=== PATIENT | female | born 1995 | race Caucasian/White ===

== ENCOUNTER 2019-09-07 15:25 | Emergency (ER) | payer SELFPAY ==
[2019-09-07 15:40] VITALS: BP 115/63
--- NOTE | 2019-09-07 16:05 | ER Document Report ---
HPI - HPI Patient complains to provider of: uti Time Seen by Provider: 09/07/19 15:55 Onset: This morning Onset/Duration: Gradual Quality of pain: Burning Pain Level: 2 Context: Patient presents complaining of frequency and dysuria that started today. Patient denies any fever, vomiting or flank pain. Associated Symptoms: Other - Dysuria. denies: Fever, Vomiting Exacerbated by: Denies Relieved by: Denies Similar symptoms previously: No Recently seen / treated by doctor: No - ROS ROS below otherwise negative: Yes Systems Reviewed and Negative: Yes All other systems reviewed and negative - CONSTITUTIONAL Constitutional: DENIES: Fever, Chills - GASTROINTESTINAL Gastrointestinal: DENIES: Abdominal Pain, Nausea - URINARY Urinary: REPORTS: Dysuria, Urgency, Frequency - REPRODUCTIVE Reproductive: DENIES: :, Abnormal bleeding / discharge - MUSCULOSKELETAL Musculoskeletal: DENIES: Back Pain - DERM Skin Color: Normal Skin Problems: None Past Medical History - General Information source: Patient - Social History Smoking Status: Never Smoker Frequency of alcohol use: None Drug Abuse: None Occupation: None Lives with: Spouse/Significant other Family History: Reviewed & Not Pertinent Patient has suicidal ideation: No Patient has homicidal ideation: No - Medical History Medical History: Negative Surgical Hx: Negative Vertical Provider Document - CONSTITUTIONAL Agree With Documented VS: Yes Exam Limitations: No Limitations General Appearance: WD/WN, No Apparent Distress - HEENT HEENT: Atraumatic, Normocephalic - NECK Neck: Normal Inspection - RESPIRATORY Respiratory: No Respiratory Distress - GI/ABDOMEN Gastrointestinal: Abdomen Soft, Abdomen Tender - suprapubic - BACK Back: Normal Inspection. negative: CVA Tenderness-Right, CVA Tenderness-Left - MUSCULOSKELETAL/EXTREMETIES Musculoskeletal/Extremeties: MAEW - NEURO Level of Consciousness: Awake, Alert, Appropriate Motor/Sensory: No Motor Deficit - DERM Integumentary: Warm, Dry, No Rash Course - Re-evaluation Re-evalutation: 09/07/19 16:49 Patient with UTI, patient reports symptoms started today. No concern for obstructive uropathy. No concern for sepsis at this time. Good return precautions discussed. - Vital Signs Vital signs: Temp Pulse Resp BP Pulse Ox 98.8 F 88 18 115/63 99 09/07/19 15:39 09/07/19 15:39 09/07/19 15:39 09/07/19 15:39 09/07/19 15:39 - Laboratory Laboratory results interpreted by me: 09/07/19 16:49 Labs- Entire Visit 09/07/19 15:54 Urine Color YELLOW Urine Appearance SLIGHTLY-CLOUDY Urine pH 8.0 Ur Specific [place] 1.019 Urine Protein NEGATIVE Urine Glucose (UA) NEGATIVE Urine Ketones NEGATIVE Urine Blood SMALL H Urine Nitrite NEGATIVE Urine Bilirubin NEGATIVE Urine Urobilinogen 8.0 H Ur Leukocyte Esterase LARGE H Urine WBC (Auto) >182 Urine RBC (Auto) 28 Urine Bacteria (Auto) TRACE Squamous Epi Cells Auto 1 U Non-Squamous Epis Auto 3 Urine Mucus (Auto) FEW Urine Ascorbic Acid NEGATIVE Discharge - Discharge Clinical Impression: UTI (urinary tract infection) Qualifiers: Urinary tract infection type: site unspecified Hematuria presence: with hematuria Qualified Code(s): N39.0 - Urinary tract infection, site not specified Condition: Stable Disposition: HOME, SELF-CARE Instructions: Cephalexin ([facility]), Urinary Tract Infection ([facility]) Additional Instructions: Return immediately for any new or worsening symptoms Followup with your primary care provider, call tomorrow to make a followup appointment Urine culture is pending, we will call if you need any different treatment Prescriptions: Cephalexin Monohydrate [Keflex 500 mg Capsule] 500 mg PO BID 5 Days capsule Referrals: [facility] [Provider Group] - Follow up as needed
[2019-09-07 16:46] LABS: APPEARANCE,URINE SLIGHTLY-CLOUDY; BILIRUBIN,URINE NEGATIVE (NEGATIVE); COLOR,URINE YELLOW; GLUCOSE, URINE NEGATIVE (NEGATIVE); KETONES,URINE NEGATIVE (NEGATIVE); URINE SPECIFIC GRAVITY 1.019
[2019-09-07 16:47] LABS: LEUKOCYTE ESTERASE,URINE LARGE (NEGATIVE); NITRITE,URINE NEGATIVE (NEGATIVE); PROTEIN,URINE NEGATIVE (NEGATIVE)
[2019-09-07] MEDS ORDERED: CEPHALEXIN 500 MG CAPSULE PO ONE (16:49)
== END 2019-09-07 17:00 | disposition home or self-care (01) ==
LOC: ER 15:25
DX: N39.0 Urinary tract infection, site not specified (principal); R31.9 Hematuria, unspecified
CPT/HCPCS: 81001; 87086; 99283

== ENCOUNTER 2019-10-20 14:09 | Emergency (ER) | payer SELFPAY ==
--- NOTE | 2019-10-20 14:19 | ER Document Report ---
ED Medical Screen (RME) - General Chief Complaint: Dizziness Stated Complaint: SHAKING,LIGHTHEADED Time Seen by Provider: 10/20/19 14:15 Mode of Arrival: Ambulatory Information source: Patient Notes: 23-year-old female presented to ED for complaint of dizziness, lightheaded, anxiety depression, vertigo, and blurred vision. She states the anniversary of her father's is coming up and she is having a panic attack. She states she has numbness in the hand her pulses running between 130 and 140s. Is alert oriented respirations regular nonlabored speaking in full sentences. She states she is extremely lightheaded and feels like she is going to pass out due to the anxiety. She is keeping a heart rate of between 130s and 140s. She states she is on Nexplanon last period was about a year ago. Patient states she does not have any heart problems that she knows of at times her heart rate does go up much higher than this. States she took a piece of a Klonopin before coming. I have greeted and performed a rapid initial assessment of this patient. A comprehensive ED assessment and evaluation of the patient, analysis of test results and completion of medical decision making process will be conducted by an additional ED providers.
[2019-10-20 14:54] LABS: ABSOLUTE EOSINOPHILS # (AUTO) 0.1 10^3/uL (0.0-0.6); ABSOLUTE LYMPHOCYTES (AUTO) 1.9 10^3/uL (0.5-4.7); ABSOLUTE MONOCYTES (AUTO) 0.6 10^3/uL (0.1-1.4); ABSOLUTE NEUT (AUTO) 8.6 10^3/uL (1.7-8.2); BASOPHILS % (AUTO) 0.3 % (0-2); EOSINOPHILS % (AUTO) 0.7 % (0-6); HEMATOCRIT 46.7 % (36.0-47.0); LYMPHOCYTES % (AUTO) 16.6 % (13-45); MEAN CORPUSCULAR HEMOGLOBIN 30.3 pg (27.0-33.4); MEAN CORPUSCULAR HGB CONC 34.3 g/dL (32.0-36.0); MEAN CORPUSCULAR VOLUME 88 fl (80-97); MONOCYTES % (AUTO) 5.7 % (3-13); PLATELET COUNT 287 10^3/uL (150-450); RED BLOOD COUNT 5.29 10^6/uL (3.72-5.28); RED CELL DISTRIBUTION WIDTH 13.1 % (11.5-14.0); SEGMENTED NEUTROPHILS % (AUTO) 76.7 % (42-78); TOTAL CELLS COUNTED % (AUTO) 100 %; WHITE BLOOD COUNT 11.2 10^3/uL (4.0-10.5)
[2019-10-20 15:15] LABS: ALBUMIN 4.7 g/dL (3.5-5.0); ALKALINE PHOSPHATASE 81 U/L (38-126); ANION GAP 12 (5-19); ASPARTATE AMINO TRANSFERASE 21 U/L (14-36); BILIRUBIN,TOTAL 0.6 mg/dL (0.2-1.3); BLOOD UREA NITROGEN 12 mg/dL (7-20); CALCIUM 10.2 mg/dL (8.4-10.2); CARBON DIOXIDE 23 mmol/L (22-30); CHLORIDE 106 mmol/L (98-107); GLUCOSE 107 mg/dL (75-110); POTASSIUM 3.6 mmol/L (3.6-5.0)
[2019-10-20 15:28] LABS: APPEARANCE,URINE SLIGHTLY-CLOUDY; BILIRUBIN,URINE NEGATIVE (NEGATIVE); COLOR,URINE COLORLESS; GLUCOSE, URINE NEGATIVE (NEGATIVE); KETONES,URINE NEGATIVE (NEGATIVE); PROTEIN,URINE NEGATIVE (NEGATIVE); URINE SPECIFIC GRAVITY 1.002; UROBILINOGEN,URINE NEGATIVE mg/dL (<2.0)
--- NOTE | 2019-10-20 15:58 | EKG REPORT ---
SEVERITY:- BORDERLINE ECG - SINUS TACHYCARDIA BORDERLINE T ABNORMALITIES, ANTERIOR LEADS : Confirmed by: Rishabh Florian MD 20-Oct-2019 15:56:55
[2019-10-20] MEDS ORDERED: CLONAZEPAM 1 MG TABLET PO ONE (17:22)
--- NOTE | 2019-10-20 17:29 | ER Document Report ---
ED General - General Chief Complaint: Anxiety Stated Complaint: SHAKING,LIGHTHEADED Time Seen by Provider: 10/20/19 14:15 Mode of Arrival: Ambulatory - HPI Notes: Ms. Rivers is a 23-year-old female presenting with a chief complaint of panic attacks. Symptoms at this time include dull headache, palpitations, tachycardia, sweating and dyspnea. This is typical of the previous panic episode she has experienced. This is been going on for a couple weeks but is worse today. She took 0.5 mg of Klonopin about 1 hour before presenting here. Patient was previously treated in [place] where she was living previously with clonazepam which she took on a as needed basis. She is got only a few tablets left now. 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 She is also having a bit of an anniversary reaction related to the loss of her father last year. She is a little depressed but denies suicidal homicidal ideation. She denies hallucinations. She denies abuse of drugs or alcohol. She is a non-smoker. Pertinent prior history: Good general health. No prior hospitalizations or surgery. Patient has implanted hormonal contraception device. No other regular medications. No known allergies. - Related Data Allergies/Adverse Reactions: adhesive Allergy (Verified 10/20/19 18:10) Sulfa (Sulfonamide Antibiotics) Allergy (Verified 10/20/19 18:10) Past Medical History - General Information source: Patient, Relative - Social History Smoking Status: Never Smoker Frequency of alcohol use: None Drug Abuse: None Family History: Reviewed & Not Pertinent Patient has suicidal ideation: No Patient has homicidal ideation: No Review of Systems - Review of Systems Notes: Constitutional: Negative for fever. HENT: Negative for sore throat. Eyes: Intermittent blurring of vision from time to time.. Cardiovascular: As per HPI. Respiratory: As per HPI. Gastrointestinal: Negative for abdominal pain, vomiting or diarrhea. Genitourinary: Negative for dysuria. Musculoskeletal: Negative for back pain. Skin: Negative for rash. Neurological: As per HPI. No focal weakness. Intermittent "[id number]" over facial area when she gets these episodes. 10 point ROS negative except as marked above and in HPI. Physical Exam - Vital signs Vitals: Temp Pulse Resp BP Pulse Ox 98.9 F 133 H 22 H 131/79 H 99 10/20/19 14:14 10/20/19 14:14 10/20/19 14:14 10/20/19 14:14 10/20/19 14:14 - Notes Notes: GENERAL: Female patient approximately stated age to appears anxious. SKIN: Good turgor. Mild flushing. HEAD: Normocephalic atraumatic. EYES: PERRLA. EOMI. Conjunctivae and sclerae clear. EARS: CANALS AND TMS CLEAR. NOSE: CLEAR. MOUTH: Moist mucosa. Good dentition. No stridor or edema. No drooling. Throat: Clear. NECK: Supple. No masses or thyromegaly. No adenopathy. Carotids 2+ without bruits. No JVD. BACK: Symmetrical without tenderness. CHEST: Respirations unlabored. Breath sounds clear and symmetrical. HEART: Tachycardic. Regular rhythm. No murmur gallop or rub. ABDOMEN: Soft nontender without masses, organomegaly or rebound. Bowel sounds normally active. No bruits. GENITALIA: Deferred. EXTREMITIES: No edema. No calf tenderness. Cap refill less than 1.5 seconds. Dorsalis pedis and posterior tibial pulses 3+ and symmetrical. NEUROLOGICAL: GCS 15. Alert and oriented x3. Mild tremor. Normal gait. Fluent speech. Cranial nerves II through XII intact. Sensorimotor and cerebellar normal. Normal tone. Psychiatric: Anxious. Does not express delusions or paranoia. Course - Re-evaluation Re-evalutation: 10/20/19 17:29 Findings are consistent with panic attack and she may have degree of PTSD related to the of her father. I will give her some additional clonazepam orally. EKG shows sinus tachycardia and is otherwise unremarkable. Her exam is normal except for tachycardia and mild tremor. She is not suicidal homicidal or delusional and I do not appear to be any substance issues that I can ascertain. I talked with patient and her at some length and I feel she is stable for outpatient follow-up and referral to a mental health provider and primary care physician. 10/20/19 18:36 Tox screen is negative and heart rate is now below 90. I think she is stable for outpatient treatment and follow-up. - Vital Signs Vital signs: Temp Pulse Resp BP Pulse Ox 98.9 F 132 H 19 130/109 H 100 10/20/19 14:15 10/20/19 14:15 10/20/19 17:00 10/20/19 15:08 10/20/19 14:15 - Laboratory Result Diagrams: 10/20/19 14:36 10/20/19 14:36 Laboratory results interpreted by me: 10/20/19 14:36 WBC 11.2 H RBC 5.29 H Hgb 16.0 H Absolute Neuts (auto) 8.6 H - EKG Interpretation by Me EKG shows normal: Sinus rhythm, [place] Rate: Tachycardia Discharge - Discharge Clinical Impression: Panic attack as reaction to stress Condition: Stable Disposition: HOME, SELF-CARE Additional Instructions: Panic Attack The cause of panic attacks is unknown. Symptoms can include chest pain, shortness of breath, palpitations, sweats, and a sense of smothering or impending doom. In time, the panic attacks can lead to generalized anxiety and phobias. Because the symptoms can mimic heart attack, pulmonary embolism, and other serious diseases, the physician has evaluated you for these conditions. There is no evidence of a serious problem. An acute panic attack usually goes away by itself without treatment. A severe attack can be treated with medicine to calm you. Long-term, antidepressant medicines may help prevent attacks. Counselling can also be very beneficial in dealing with panic attacks. Panic attacks are less likely if you are getting regular exercise, proper diet, and plenty of sleep. It's normal for panic attacks to cause many frightening symptoms. However, you should call or return if your symptoms change significantly or if you are worsening. You have been provided a work note for the next 3 days. Take prescription medication as needed. Follow-up with mental health provider and primary care provider as directed. Return here as needed for new or worsening symptoms. Prescriptions: Clonazepam 0.5 mg PO TID 7 Days #21 tablet Forms: Return to Work Referrals: [facility] [Provider Group] - Follow up as needed
[2019-10-20] MEDS ORDERED: ACETAMINOPHEN SOLN 325 MG/10.15 ML UDCUP PO ONE (18:10)
[2019-10-20 18:12] LABS: URINE AMPHETAMINES SCREEN NEGATIVE; URINE BARBITURATES SCREEN NEGATIVE; URINE BENZODIAZEPINES SCREEN NEGATIVE; URINE COCAINE SCREEN NEGATIVE; URINE MARIJUANA (THC) SCREEN NEGATIVE; URINE METHADONE SCREEN NEGATIVE; URINE PHENCYCLIDINE SCREEN NEGATIVE
[2019-10-20] MEDS ORDERED: ACETAMINOPHEN 325 MG TABLET PO ONE (18:14)
[2019-10-20 18:50] VITALS: BP 113/62
== END 2019-10-20 18:50 | disposition home or self-care (01) ==
LOC: ER 14:09
DX: F41.0 Panic disorder [episodic paroxysmal anxiety] (principal); F43.9 Reaction to severe stress, unspecified; F41.9 Anxiety disorder, unspecified; R51 Headache; R00.2 Palpitations; R00.0 Tachycardia, unspecified; R61 Generalized hyperhidrosis; R06.00 Dyspnea, unspecified; Z79.899 Other long term (current) drug therapy
CPT/HCPCS: 36415; 80053; 80307; 81001; 84703; 85025; 93005; 93010; 99283

== ENCOUNTER 2020-05-29 18:00 | Emergency (ER) | payer SELFPAY ==
[2020-05-29] MEDS ORDERED: ACETAMINOPHEN 325 MG TABLET PO ONE (18:32)
--- NOTE | 2020-05-29 18:34 | ER Document Report ---
ED General - General Chief Complaint: General Weakness Stated Complaint: WEAKNESS Time Seen by Provider: 05/29/20 18:22 - HPI Patient complains to provider of: fatigue Notes: 24 y/o w/ history of anxiety presenting to the ED with 4-5 days of fatigue she reports a sore throat earlier in the week only when she lays down but denies persistent sore throat, ear pain, cough, nausea, vomiting, or other symptoms she states she is sleeping enough and eating regularly but does not feel like herself she denies misusing her home lorazepam for anxiety and denies any other substance or prescription use she denies depression she denies known sick contacts - Related Data Allergies/Adverse Reactions: adhesive Allergy (Verified 10/20/19 18:10) Sulfa (Sulfonamide Antibiotics) Allergy (Verified 10/20/19 18:10) Home Medications: zyrtec, nexplanon, omeprazole, ativan Past Medical History - Social History Smoking Status: Never Smoker Frequency of alcohol use: None Drug Abuse: None Family History: Reviewed & Not Pertinent Review of Systems - Review of Systems Constitutional: Malaise EENT: No symptoms reported Cardiovascular: No symptoms reported Respiratory: No symptoms reported Gastrointestinal: No symptoms reported Genitourinary: No symptoms reported Female Genitourinary: No symptoms reported Musculoskeletal: No symptoms reported Skin: No symptoms reported Hematologic/Lymphatic: No symptoms reported Neurological/Psychological: No symptoms reported Physical Exam - Vital signs Vitals: Temp Pulse Resp BP Pulse Ox 99.5 F 111 H 20 122/76 98 05/29/20 18:09 05/29/20 18:09 05/29/20 18:09 05/29/20 18:09 05/29/20 18:09 Interpretation: Normal - General General appearance: Appears well, Alert - HEENT Head: Normocephalic, Atraumatic Eyes: Normal Pupils: PERRL Tympanic membrane: Normal - bilateral - Respiratory Respiratory status: No respiratory distress Chest status: Nontender Breath sounds: Normal Chest palpation: Normal - Cardiovascular Rhythm: Regular Heart sounds: Normal auscultation Murmur: No - Abdominal Inspection: Normal Distension: No distension Bowel sounds: Normal Tenderness: Nontender Organomegaly: No organomegaly - Back Back: Normal, Nontender - Extremities General upper extremity: Normal inspection, Nontender, Normal color, Normal ROM, Normal temperature General lower extremity: Normal inspection, Nontender, Normal color, Normal ROM, Normal temperature, Normal weight bearing. No: Ruperto's sign - Neurological Neuro grossly intact: Yes Cognition: Normal Orientation: AAOx4 [place] Coma Scale Eye Opening: Spontaneous [place] Coma Scale Verbal: Oriented [place] Coma Scale Motor: Obeys Commands [place] Coma Scale Total: 15 Speech: Normal Motor strength normal: LUE, RUE, LLE, RLE Sensory: Normal - Psychological Associated symptoms: Normal affect, Normal mood - Skin Skin Temperature: Warm Skin Moisture: Dry Skin Color: Normal Course - Re-evaluation Re-evalutation: 05/29/20 18:34 patient with mild tachycardia and borderline temp she denies any symptoms here aside from fatigue will check basic labs and ua/upt for screening on an otherwise well appearing patient on exam 05/29/20 19:52 labs are reassuring will dc w/ outpt pcp follow up return precautions reviewed prior to dc - Vital Signs Vital signs: Temp Pulse Resp BP Pulse Ox 99.5 F 111 H 20 122/76 98 05/29/20 18:09 05/29/20 18:09 05/29/20 18:09 05/29/20 18:09 05/29/20 18:09 - Laboratory Result Diagrams: 05/29/20 18:52 05/29/20 18:52 Laboratory results interpreted by me: 05/29/20 05/29/20 05/29/20 18:32 18:52 18:52 Hgb 15.8 H Glucose 137 H Ur Leukocyte Esterase TRACE H Urine Ascorbic Acid 40 H Discharge - Discharge Clinical Impression: Fatigue Qualifiers: Fatigue type: other Qualified Code(s): R53.83 - Other fatigue Condition: Stable Disposition: HOME, SELF-CARE Instructions: Fatigue (OM) Additional Instructions: Please establish a primary care provider for follow up Return to the ED with worsening symptoms or concerns
[2020-05-29 18:54] LABS: APPEARANCE,URINE SLIGHTLY-CLOUDY; BILIRUBIN,URINE NEGATIVE (NEGATIVE); COLOR,URINE YELLOW; GLUCOSE, URINE NEGATIVE (NEGATIVE); KETONES,URINE NEGATIVE (NEGATIVE); LEUKOCYTE ESTERASE,URINE TRACE (NEGATIVE); NITRITE,URINE NEGATIVE (NEGATIVE); PROTEIN,URINE NEGATIVE (NEGATIVE); URINE SPECIFIC GRAVITY 1.021; UROBILINOGEN,URINE NEGATIVE mg/dL (<2.0)
[2020-05-29 19:02] LABS: ABSOLUTE EOSINOPHILS # (AUTO) 0.1 10^3/uL (0.0-0.6); ABSOLUTE LYMPHOCYTES (AUTO) 1.9 10^3/uL (0.5-4.7); ABSOLUTE MONOCYTES (AUTO) 0.4 10^3/uL (0.1-1.4); ABSOLUTE NEUT (AUTO) 5.2 10^3/uL (1.7-8.2); BASOPHILS % (AUTO) 0.6 % (0-2); EOSINOPHILS % (AUTO) 0.9 % (0-6); HEMATOCRIT 45.3 % (36.0-47.0); HEMOGLOBIN 15.8 g/dL (12.0-15.5); LYMPHOCYTES % (AUTO) 24.6 % (13-45); MEAN CORPUSCULAR HEMOGLOBIN 30.9 pg (27.0-33.4); MEAN CORPUSCULAR VOLUME 88 fl (80-97); MONOCYTES % (AUTO) 5.6 % (3-13); PLATELET COUNT 270 10^3/uL (150-450); RED BLOOD COUNT 5.13 10^6/uL (3.72-5.28); RED CELL DISTRIBUTION WIDTH 12.5 % (11.5-14.0); SEGMENTED NEUTROPHILS % (AUTO) 68.3 % (42-78); TOTAL CELLS COUNTED % (AUTO) 100 %; WHITE BLOOD COUNT 7.6 10^3/uL (4.0-10.5)
[2020-05-29 19:35] LABS: ANION GAP 7 (5-19); BLOOD UREA NITROGEN 17 mg/dL (7-20); CALCIUM 9.8 mg/dL (8.4-10.2); CARBON DIOXIDE 26 mmol/L (22-30); CHLORIDE 105 mmol/L (98-107); GLUCOSE 137 mg/dL (75-110)
[2020-05-29 20:01] VITALS: BP 107/58
== END 2020-05-29 20:02 | disposition home or self-care (01) ==
LOC: ER 18:00
DX: R53.83 Other fatigue (principal); R53.81 Other malaise; R00.0 Tachycardia, unspecified; F41.9 Anxiety disorder, unspecified; Z79.899 Other long term (current) drug therapy; Z97.5 Presence of (intrauterine) contraceptive device; Z88.2 Allergy status to sulfonamides; Z91.048 Other nonmedicinal substance allergy status
CPT/HCPCS: 36415; 80048; 81001; 81025; 85025; 99284